=== PATIENT | female | born 1955 | race Caucasian/White ===

== ENCOUNTER 2016-11-17 22:26 | Emergency (ER) | payer MEDICAID, SELFPAY ==
[~2016-11-17] VITALS: Ht 177.8 cm; Wt 81.9 kg
[2016-11-17 22:58] VITALS: BP 113/79
[2016-11-17] MEDS ORDERED: ALBUTEROL/IPRATROPIUM 2.5MG/0.5MG, 3 ML NPPB ONE (23:00)
[2016-11-17] MEDS ORDERED: ALBUTEROL/IPRATROPIUM 2.5MG/0.5MG, 3 ML ONE (23:01)
[2016-11-18] MEDS ORDERED: GUAIFENESIN 100 MG/5 ML, 5ML UDC PO ONE
== END 2016-11-18 00:31 | disposition home or self-care (01) ==
LOC: ED 11-18 00:25
DX: J20.9 Acute bronchitis, unspecified (principal); J45.909 Unspecified asthma, uncomplicated; J44.9 Chronic obstructive pulmonary disease, unspecified; Z72.9 Problem related to lifestyle, unspecified; I10 Essential (primary) hypertension; E11.9 Type 2 diabetes mellitus without complications
CPT/HCPCS: 93005; 94640; 99283; J7620

== ENCOUNTER 2016-11-19 08:47 | Emergency (ER) | payer MEDICAID ==
[~2016-11-19] VITALS: Ht 177.8 cm; Wt 79.0 kg
[2016-11-19 09:22] VITALS: BP 105/80
[2016-11-19] MEDS ORDERED: FLUCONAZOLE 100 MG TABLET PO ONE (10:00)
[2016-11-19] MEDS ORDERED: PLEASE ENTER HEIGHT AND WEIGHT MC SCH (10:00)
[2016-11-19] MEDS ORDERED: ALBUTEROL/IPRATROPIUM 2.5MG/0.5MG, 3 ML NPPB ONE (10:00)
[2016-11-19 10:15] LABS: BLOOD UREA NITROGEN 12 mg/dL (7-18)
[2016-11-19] MEDS ORDERED: ALBUTEROL/IPRATROPIUM 2.5MG/0.5MG, 3 ML ONE (10:21)
[2016-11-19 10:25] LABS: HEMATOCRIT 40.8 % (34.6-47.8); HEMOGLOBIN 13.8 g/dL (11.7-16.4); WHITE BLOOD COUNT 9.1 x10^3/uL (3.4-10)
[2016-11-19 10:36] LABS: DIFF TOTAL CELLS COUNTED 100 CELL DIFF
[2016-11-19 10:38] LABS: VERIFY COUNTS? YES
== END 2016-11-19 12:29 | disposition home or self-care (01) ==
LOC: ED 09:08
DX: R06.00 Dyspnea, unspecified (principal); I10 Essential (primary) hypertension; E11.9 Type 2 diabetes mellitus without complications; J44.9 Chronic obstructive pulmonary disease, unspecified
CPT/HCPCS: 36415; 80048; 82040; 85025; 94640; 99284; J7620

== ENCOUNTER 2017-01-15 19:31 | Emergency (ER) | payer MEDICAID ==
[~2017-01-15] VITALS: Ht 177.8 cm; Wt 86.7 kg
[2017-01-15 19:32] VITALS: BP 146/97
[2017-01-15 20:19] LABS: HEMATOCRIT 38.4 % (34.6-47.8); HEMOGLOBIN 12.9 g/dL (11.7-16.4); WHITE BLOOD COUNT 5.9 x10^3/uL (3.4-10)
[2017-01-15 20:28] LABS: BLOOD UREA NITROGEN 13 mg/dL (7-18)
[2017-01-15] MEDS ORDERED: APAP/CODEINE 300/30MG TABLET PO ONE (21:00)
== END 2017-01-15 22:19 | disposition home or self-care (01) ==
LOC: ED 22:01
DX: M79.621 Pain in right upper arm (principal); M79.661 Pain in right lower leg; Z76.0 Encounter for issue of repeat prescription; J44.9 Chronic obstructive pulmonary disease, unspecified; I10 Essential (primary) hypertension; E11.9 Type 2 diabetes mellitus without complications; Z79.4 Long term (current) use of insulin
CPT/HCPCS: 36415; 80048; 82040; 85025; 99284

== ENCOUNTER 2017-02-16 08:34 | Emergency (ER) | payer MEDICAID ==
[~2017-02-16] VITALS: Ht 177.8 cm; Wt 80.0 kg
[2017-02-16 08:37] VITALS: BP 144/71
[2017-02-16] MEDS ORDERED: IPRATROPIUM 0.5 MG/2.5 ML INHA ONE (09:21)
[2017-02-16] MEDS ORDERED: IPRATROPIUM 0.5 MG/2.5 ML INHA NPPB ONE (09:30)
[2017-02-16] MEDS ORDERED: AZITHROMYCIN 500 MG TABLET PO ONE (10:00)
[2017-02-16] MEDS ORDERED: ACETAMINOPHEN 325 MG TABLET PO ONE (10:00)
[2017-02-16] MEDS ORDERED: CEFTRIAXONE 1,000 MG IM ONE (10:00)
[2017-02-16] MEDS ORDERED: AZITHROMYCIN 250 MG TABLET ONE (10:02)
[2017-02-16] MEDS ORDERED: ACETAMINOPHEN 325 MG TABLET ONE (10:02)
[2017-02-16] MEDS ORDERED: CEFTRIAXONE 1,000 MG ONE (10:02)
== END 2017-02-16 11:01 | disposition home or self-care (01) ==
LOC: ED 10:40
DX: J44.0 Chronic obstructive pulmonary disease with (acute) lower respiratory infection (principal); J15.9 Unspecified bacterial pneumonia; Z91.19 Patient's noncompliance with other medical treatment and regimen; E11.9 Type 2 diabetes mellitus without complications
CPT/HCPCS: 36415; 71045; 80047; 93005; 94640; 96372; 99285; J0696; J7512; J7644

== ENCOUNTER 2017-02-17 05:44 | Emergency (ER) | payer MEDICAID ==
[~2017-02-17] VITALS: Ht 177.8 cm; Wt 82.1 kg
[2017-02-17 05:51] VITALS: BP 128/84
== END 2017-02-17 06:41 | disposition home or self-care (01) ==
LOC: ED 06:25
DX: J18.1 Lobar pneumonia, unspecified organism (principal); I10 Essential (primary) hypertension; E11.9 Type 2 diabetes mellitus without complications; J44.9 Chronic obstructive pulmonary disease, unspecified
CPT/HCPCS: 99281

== ENCOUNTER 2017-09-20 13:37 | Emergency (ER) | payer MEDICAID ==
[~2017-09-20] VITALS: Ht 177.8 cm; Wt 85.0 kg
[2017-09-20 14:44] LABS: ALBUMIN 3.3 g/dL (3.4-5.0); ANION GAP 11 mmol/L (5-15); CALCIUM 8.6 mg/dL (8.5-10.1); CHLORIDE 106 mmol/L (98-107); CREATININE 0.85 mg/dL (0.55-1.02)
[2017-09-20 14:50] LABS: BASOPHILS # (AUTO) 0.04 x10^3/uL (0-0.1); BASOPHILS % (AUTO) 1 % (0-1); EOSINOPHILS # (AUTO) 0.19 x10^3/uL (0-0.4); EOSINOPHILS % (AUTO) 3 % (1-7); LYMPHOCYTES # (AUTO) 2.43 x10^3/uL (1-3.4); LYMPHOCYTES % (AUTO) 36 % (22-44); MD NO; MEAN CORPUSCULAR HEMOGLOBIN 30.9 pg (27.0-34.8); MEAN CORPUSCULAR HGB CONC 34.4 g/dL (32.4-35.8); MEAN CORPUSCULAR VOLUME 89.7 fL (80-100); MEAN PLATELET VOLUME 7.1 fL (7.4-10.4); MONOCYTES # (AUTO) 0.39 x10^3/uL (0.2-0.8); MONOCYTES % (AUTO) 6 % (2-9); NEUTROPHILS # (AUTO) 3.76 x10^3/uL (1.8-6.8); NEUTROPHILS % (AUTO) 55 % (42-75); PLATELET COUNT 268 x10^3/uL (130-400); RED BLOOD COUNT 4.12 x10^6/uL (3.82-5.3); RED CELL DISTRIBUTION WIDTH 14.4 % (9.6-15.2)
[2017-09-20 15:08] LABS: MICROSCOPIC NOT IND
[2017-09-20 15:14] LABS: CULTURE INDICATED? NO
[2017-09-20 15:31] VITALS: BP 102/67
== END 2017-09-20 16:27 | disposition home or self-care (01) ==
LOC: ED 16:07
DX: E11.65 Type 2 diabetes mellitus with hyperglycemia (principal); N30.90 Cystitis, unspecified without hematuria; Z91.14 Patient's other noncompliance with medication regimen; Z72.9 Problem related to lifestyle, unspecified
CPT/HCPCS: 36415; 80048; 81003; 82040; 85025; 93005; 99285

== ENCOUNTER 2018-12-09 10:05 | Emergency (ER) | payer MEDICAID ==
[~2018-12-09] VITALS: Ht 177.8 cm; Wt 84.0 kg
[2018-12-09] MEDS ORDERED: FUROSEMIDE 20 MG TABLET PO ONE (11:00)
[2018-12-09] MEDS ORDERED: POTA10TA PO (11:10)
[2018-12-09] MEDS ORDERED: INSU100V8 SQ (11:10)
[2018-12-09] MEDS ORDERED: OMEP40CA6 PO (11:10)
[2018-12-09] MEDS ORDERED: ACET325T26 PO (11:10)
[2018-12-09] MEDS ORDERED: ENOX30SY4 SC (11:10)
[2018-12-09] MEDS ORDERED: FURO40TA6 PO (11:10)
[2018-12-09] MEDS ORDERED: INSU100C SQ-INSULIN (11:10)
[2018-12-09] MEDS ORDERED: PRED20TA PO (11:10)
[2018-12-09] MEDS ORDERED: IPRA4AER INH (11:10)
[2018-12-09] MEDS ORDERED: IBUP-1222 PO (11:10)
[2018-12-09] MEDS ORDERED: FUROSEMIDE 20 MG TABLET ONE (11:19)
[2018-12-09 11:32] VITALS: BP 111/73
--- NOTE | 2018-12-09 11:33 | NUR ---
PATIENT IS RESTING IN BED. STATES SHE HAS SOME PAIN BUT TOOK IBUPROFEN THIS MORNING BEFORE SHE CAME TO ED AND THINKS ITS WORKING.
[2018-12-09 11:37] LABS: BASOPHILS % (AUTO) 0 % (0-1); EOSINOPHILS # (AUTO) 0.08 x10^3/uL (0-0.4); EOSINOPHILS % (AUTO) 1 % (1-7); LYMPHOCYTES % (AUTO) 12 % (22-44); MD NO; MEAN CORPUSCULAR HEMOGLOBIN 30.6 pg (27.0-34.8); MEAN CORPUSCULAR HGB CONC 32.9 g/dL (32.4-35.8); MEAN CORPUSCULAR VOLUME 92.8 fL (80-100); MEAN PLATELET VOLUME 7.1 fL (7.4-10.4); MONOCYTES # (AUTO) 0.25 x10^3/uL (0.2-0.8); MONOCYTES % (AUTO) 3 % (2-9); NEUTROPHILS # (AUTO) 7.18 x10^3/uL (1.8-6.8); NEUTROPHILS % (AUTO) 84 % (42-75); PLATELET COUNT 265 x10^3/uL (130-400); RED BLOOD COUNT 4.26 x10^6/uL (3.82-5.3); RED CELL DISTRIBUTION WIDTH 14.3 % (9.6-15.2)
[2018-12-09 11:49] LABS: ALANINE AMINOTRANSFERASE 30 U/L (12-78); ALBUMIN 3.2 g/dL (3.4-5.0); ANION GAP 10 mmol/L (5-15); CALCIUM 8.2 mg/dL (8.5-10.1); CHLORIDE 101 mmol/L (98-107)
[2018-12-09 11:54] LABS: ALKALINE PHOSPHATASE 97 U/L (45-117); BILIRUBIN,TOTAL 0.4 mg/dL (0.2-1.0); TOTAL PROTEIN 7.1 g/dL (6.4-8.2)
== END 2018-12-09 12:38 | disposition home or self-care (01) ==
LOC: ED 12:20
DX: I27.20 Pulmonary hypertension, unspecified (principal); Z86.711 Personal history of pulmonary embolism; Z79.01 Long term (current) use of anticoagulants; R60.0 Localized edema; E11.9 Type 2 diabetes mellitus without complications; I10 Essential (primary) hypertension; J44.9 Chronic obstructive pulmonary disease, unspecified; Z72.9 Problem related to lifestyle, unspecified
CPT/HCPCS: 36415; 71045; 80053; 83880; 85025; 93005; 99284